=== PATIENT | male | born 1975 | race Caucasian/White ===

== ENCOUNTER 2022-03-08 23:34 | Emergency (ER) | payer OTHER, SELFPAY ==
--- NOTE | ~2022-03-08 | XR_ITS ---
EXAMINATION: XR chest 2V DATE: 03/09/2022 00:35 INDICATION: Chest pain. TECHNIQUE: Frontal and lateral views of the chest were obtained. COMPARISON: None. FINDINGS: The chest demonstrates clear lungs without pneumonia, pleural effusion, or pneumothorax. Th e heart size is normal. IMPRESSION: 1. No acute cardiopulmonary disease. Reviewed, dictated and finalized at location A.
[2022-03-08 23:32] VITALS: PULSE 91; RESP 18; TEMP 36.6; O2SAT 97
--- NOTE | 2022-03-08 23:39 | ECG_ITS ---
Measurements Intervals [place] Rate: 101 P: 53 NE: 156 QRS: 246 QRSD: 95 T: 48 QT: 359 QTc: 465 Interpretive Statements SINUS TACHYCARDIA VENTRICULAR PREMATURE COMPLEX RIGHT AXIS DEVIATION LEFT ATRIAL ENLARGEMENT INCOMPLETE RIGHT BUNDLE BRANCH BLOCK ANTEROLATERAL INFARCT, AGE INDETERMINATE INFERIOR INFARCT, AGE INDETERMINATE ABNORMAL ECG NO PREVIOUS ECG AVAILABLE FOR COMPARISON Electronically Signed On 03-09-2022 7:00:24 CDT by Matthew Buck D.O.
--- NOTE | 2022-03-08 23:54 | ED.GENADULT ---
HPI - General Adult General Chief complaint: Chest Pain Stated complaint: CHEST PAIN History of Present Illness HPI narrative: 46-year-old male with history of MO and CVA presented the emergency department for evaluation of chest pain that started after he was arrested this evening. Patient states he did have some left-sided chest pain that was worsened due to his anxiety about incarceration. On arrival to the ED patient states that his symptoms are improving. Patient states that his most recent MO was approximately 2 months ago. Patient states his most recent CVA was about 3 weeks ago. Patient follows up with cardiology at [facility]. Patient had initially been told that he had approximately 6 months to live due to his worsening cardiac function. This was approximately 3 months ago. Patient states that he was initially going to have open heart surgery but they later told him that he was not going to have the open heart surgery and he was discharged home with a LifeVest. Patient states since that time he has stopped taking his medications other than his metformin and has not been wearing a LifeVest. Related Data Allergies Allergy/AdvReac Type Severity Reaction Status Date / Time iohexol Allergy Swelling Verified 03/08/22 23:45 [From contrast - CT, X-RAY] Review of Systems Review of Systems: CONSTITUTIONAL: Denies fever, chills, or sweats. EYES: Denies visual changes, redness, or discharge. ENT: Denies rhinorrhea, congestion, sore throat, or otalgia. CARDIOVASCULAR: See HPI RESPIRATORY: Denies cough or dyspnea. GASTROINTESTINAL: Denies abdominal pain, nausea, vomiting, or diarrhea. GENITOURINARY: Denies dysuria or hematuria. SKIN: Denies rash or itching. MUSCULOSKELETAL: Denies back pain, joint pain, or myalgia. NEUROLOGIC: Denies headache, numbness, or weakness. Exam Narrative: APPEARANCE: Well appearing, no pain, no distress, well-nourished. HEAD: normocephalic, atraumatic. EYES: PERRLA/EOMI, conjunctivae clear. NOSE: Normal no drainage EARS:TMS clear with good light reflex. THROAT: Pharynx clear, no exudate. NECK: Supple. No adenopathy, no masses. RESPIRATORY: Airway patent, respirations nonlabored. Clear to auscultation bilaterally, no rales, rhonchi, wheezing. CARDIOVASCULAR: Regular rate and rhythm without murmurs rubs or gallops. ABDOMINAL: Soft, nontender, nondistended, normal bowel sounds MUSCULOSKELETAL: Moves all extremities. Strength/ROM intact, No edema, No calf tenderness. NEURO: Alert. Cranial nerves II through XII intact. Grossly intact SKIN: Warm, dry. Normal Color Course Course Emergency Course: Patient's report from his most recent stay at [facility] were reviewed. Patient does have an EF of 18%. Patient stated that he has stopped taking his cardiac medications. Patient does have elevated troponin here. Patient was offered admission but declined. Patient was told 3 months ago that he only had 6 months to live. Patient has had follow-up with [facility] and with [facility] for his cardiac issues. Patient is alert and oriented but prefers to be discharged. Patient declined admission at this time. Patient stated in his own words he is aware that he is dying and patient is aware of the risks of not being admitted. All questions concerns were addressed. Vital Signs Vital signs: Vital Signs Temperature 97.8 F 03/08/22 23:32 Pulse Rate 91 03/08/22 23:32 Respiratory Rate 18 03/08/22 23:32 Pulse Oximetry 97 03/08/22 23:32 Oxygen Delivery Room Air 03/08/22 23:32 Temperature 97.8 F 03/08/22 23:32 Pulse Rate 95 03/09/22 04:17 Respiratory Rate 12 03/09/22 04:17 Blood Pressure 165/116 H 03/09/22 04:17 Pulse Oximetry 99 03/09/22 04:17 Oxygen Delivery Room Air 03/08/22 23:32 Medical Decision Making Vital Signs Vital Signs: Vital Signs Temperature 97.8 F 03/08/22 23:32 Pulse Rate 91 03/08/22 23:32 Respiratory R
[2022-03-08 23:59] LABS: Basophils Absolute Auto 0.1 K/mm3 (0.0-0.1); Basophils Percent Auto 0.7 % (0.2-1.2); Eosinophils Percent Auto 0.3 % (0-4.4); Hematocrit 55.4 % (42.0-52.0); Immature Granulocyte Percent A 0.7 % (0-0.5); Lymphocytes Absolute Auto 2.05 K/mm3 (0.9-3.2); Lymphocytes Percent Auto 13.9 % (18.3-44.2); Mean Corpuscular HGB Conc 32.5 g/dl (32-36); Mean Corpuscular Volume 83.2 fl (80-100); Mean Platelet Volume 9.8 fl (7.4-10.4); Monocytes Absolute Auto 0.9 K/mm3 (0.1-0.6); Monocytes Percent Auto 6.3 % (2.6-8.5); Neutrophils Absolute Auto 11.5 K/mm3 (1.3-6.7); Neutrophils Percent Auto 78.1 % (45.5-73.1); Platelet Count Result 262 k/mm3 (150-375); Red Blood Count 6.66 M/mm3 (4.6-6.20); Red Cell Distribution Width 17.8 % (11.5-14.5); White Blood Count 14.8 K/mm3 (4.5-10.0)
[2022-03-09] VITALS (30 sets, daily range): BP systolic 138–169; BP diastolic 102–147; PULSE 87–107; RESP 12–25; O2SAT 96–100
[2022-03-09 00:13] LABS: Alanine Aminotransferase 31 U/L (6-50); Albumin Level 4.7 g/dL (3.5-5.1); Alkaline Phosphatase 64 U/L (38-126); Anion Gap 13 mmol/L (8-16); Aspartate Amino Transferase 26 U/L (17-59); Bilirubin,Total 0.4 mg/dL (0.2-1.3); Blood Urea Nitrogen 32 mg/dL (9-20); Calcium 9.8 mg/dL (8.4-10.2); Carbon Dioxide 27 mmol/L (22-30); Chloride 101 mmol/L (98-107); Estimated CRCL calculation 75 ml/min; Estimated Glomerular Filt Rate > 60; Glucose 175 mg/dL (65-110); Potassium 3.3 mmol/L (3.4-5.0); Sodium 141 mmol/L (137-145)
[2022-03-09] MEDS: NITROGLYCERIN SL 0.4 MG TABLET SUBLINGUAL ×2 (01:48)
[2022-03-09] MEDS: MORPHINE SULFATE (*CRX) 4 MG/ML INJ IV PUSH (01:50)
--- NOTE | 2022-03-09 02:08 | PC.NURSE ---
Consent to obtain medical record from [facility] signed and faxed to hospital per MD request.
[2022-03-09] MEDS: hydrALAZINE HCL 20 MG/ML VIAL 10 MG IV PUSH (03:03)
[2022-03-09 03:39] LABS: Troponin I 0.078 ng/mL (0.000-0.034)
== END 2022-03-09 04:31 | disposition left against medical advice (07) ==
PROVIDERS: Emergency Provider Emergency Medicine
DX: R07.9 Chest pain, unspecified (principal); I25.2 Old myocardial infarction; Z86.73 Personal history of transient ischemic attack (TIA), and cerebral infarction without residual deficits; Z79.84 Long term (current) use of oral hypoglycemic drugs; R00.0 Tachycardia, unspecified; I49.3 Ventricular premature depolarization; R94.31 Abnormal electrocardiogram [ECG] [EKG]
CPT/HCPCS: 36415; 71046; 80053; 84484; 85025; 93005; 96374; 96375; 99284; A9270; J0360; J2270